=== PATIENT | male | born 1955 | race African-American/Black ===

== ENCOUNTER 2018-08-30 14:14 | Emergency (ER) | payer MEDICARE ==
[~2018-08-30] VITALS: Ht 188 cm; Wt 152.0 kg
[2018-08-30 14:37] LABS: BASO # 0.1 x10^3/uL (0.0-0.2); BASO % 2 % (0-3); EOS # 0.1 x10^3/uL (0.0-0.7); EOS % 3 % (0-3); LYMPH # 0.6 x10^3/uL (1.0-4.8); LYMPH % 13 % (24-48); MEAN CORPUSCULAR HEMOGLOBIN 29 pg (25-35); MEAN CORPUSCULAR HGB CONC 32 g/dL (31-37); MEAN CORPUSCULAR VOLUME 88 fL (79-100); MONO # 0.4 x10^3/uL (0.0-1.1); MONO % 9 % (0-9); NEUT # 3.5 x10^3uL (1.8-7.7); NEUT % 73 % (31-73); PLATELET COUNT 154 x10^3/uL (140-400); RED BLOOD COUNT 3.85 x10^6/uL (4.30-5.70); RED CELL DISTRIBUTION WIDTH 16.5 % (11.5-14.5); WHITE BLOOD COUNT 4.8 x10^3/uL (4.0-11.0)
--- NOTE | 2018-08-30 14:40 | PHYS DOC ---
Adult General Chief Complaint Chief Complaint: MECHANICAL FALL HPI HPI 62-year-old male presents via EMS after fall. Patient states that he was walking and slipped on the ice. The last thing he remembers to waking up on the ground. When he woke up, there were people standing over him try and help him get up. The patient is unsure which direction he fell, but he knows he was unconscious. At this time his only complaint is some right shoulder pain. He denies headache or neck pain. Due to loss of consciousness he is in a cervical collar by EMS. Patient states he was feeling well prior to this episode. He has kidney failure and is on dialysis. He has a Tuesday. His last dialysis was yesterday and he states that it went "fine". Review of Systems Review of Systems Constitutional: Denies fever or chills [] Eyes: Denies change in visual acuity, redness, or eye pain [] HENT: Denies nasal congestion or sore throat [] Respiratory: Denies cough or shortness of breath [] Cardiovascular: No additional information not addressed in HPI [] GI: Denies abdominal pain, nausea, vomiting, bloody stools or diarrhea [] : Denies dysuria or hematuria [] Musculoskeletal: right shoulder pain [] Integument: Denies rash or skin lesions [] Neurologic: Denies headache, focal weakness or sensory changes. +LOC [] Endocrine: Denies polyuria or polydipsia [] All other systems were reviewed and found to be within normal limits, except as documented in this note. Allergies Allergies Allergies Coded Allergies Type Severity Reaction Last Updated Verified Iodinated Contrast- Oral and IV Dye Allergy Intermediate 08/30/18 Yes metformin Allergy Intermediate 08/30/18 Yes sulfamethoxazole Allergy Intermediate 08/30/18 Yes trimethoprim Allergy Intermediate 08/30/18 Yes Physical Exam Physical Exam Constitutional: Well developed, well nourished, no acute distress, non-toxic appearance. [] HENT: Normocephalic, atraumatic, bilateral external ears normal, oropharynx moist, no oral exudates, nose normal. [] Eyes: PERRLA, EOMI, conjunctiva normal, no discharge. [] Neck: In a cervical collar, no cervical bony tenderness.[] Cardiovascular:Heart rate regular rhythm, no murmur [] Lungs & Thorax: Bilateral breath sounds clear to auscultation [] Abdomen: Bowel sounds normal, soft, no tenderness, no masses, no pulsatile masses. [] Skin: Warm, dry, no erythema, no rash. [] Back: No tenderness, no CVA tenderness. [] Extremities: Right shoulder tender to palpation, no obvious deformity, no ecchymosis.[] Neurologic: Alert and oriented X 3, normal motor function, normal sensory function, no focal deficits noted. [] Psychologic: Affect normal, judgement normal, mood normal. [] EKG EKG Sinus rhythm, rate 78, normal axis, no ST elevations or depressions.[] Radiology/Procedures Radiology/Procedures [] Impressions: PQRS Compliance Statement: One or more of the following individualized dose reduction techniques were utilized for this examination: 1. Automated exposure control 2. Adjustment of the mA and/or kV according to patient size 3. Use of iterative reconstruction technique CT HEAD AND CERVICAL SPINE WITHOUT CONTRAST History: FALL TODAY, LOC Comparison: None. Procedure: Axial images are obtained of the head from the skull base through the vertex without IV contrast. Noncontrast helical CT of the cervical spine was performed. Axial, sagittal, and coronal reconstructions were obtained. Findings: There is acute subdural along the mid and posterior falx. Maximum diameter is 3 mm. Tiny foci of subarachnoid hemorrhage may be present along the falx, images 27 and 24. Magna cisterna magna. 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 The ventricles and sulci are prominent, consistent with age-related cerebral atrophy. There is mild periventricular white matter hypoattenuation. This is a nonspecific finding but is commonly due to chronic small vessel ischemic disease in a patient of this age. No mass-effect, midline shift, or obvious acute infarction is identified. Basilar cisterns are patent. Bone windows demonstrate no significant calvarial abnormality. The visualized paranasal sinuses are clear. Mastoid air cells are well aerated. There is no evidence of acute fracture or acute malalignment of the cervical spine. No perched or jumped facets. Straightening of normal cervical lordosis may be positional or due to muscle spasm. There is disc space narrowing and endplate spurring most advanced at C4/C5, C5/C6, and C6/C7. The craniovertebral junction is normal. Visualized soft tissues of the neck demonstrate no significant abnormalities. There is a nutrient channel of the left first rib, coronal image 74. Given the history, a first rib fracture is unlikely. The visualized lung apices are clear. IMPRESSION: 1. Small acute subdural hematoma along the upper falx. 2. Old right cerebellar infarct. 3. No acute fracture of the cervical spine. Findings discussed with BEBE CARSON at 08/30/2018 3:19 PM. FOR INTERNAL CODING PURPOSES Critical result: RESULT CODE: (C) Electronically signed by: Mario Trujillo MD (08/30/2018 3:20 PM) [id number] AP chest, 08/30/2018: HISTORY: Fall, loss of consciousness There has been a previous median sternotomy. The heart size appears to be within normal limits for the AP technique. No pulmonary infiltrate is seen. There is no evidence of pleural fluid or pneumothorax. IMPRESSION: No acute cardiopulmonary abnormality is detected. Electronically signed by: Basil Duenas MD (08/30/2018 3:08 PM) [facility] DICTATED AND SIGNED BY: BASIL DUENAS MD DATE: 08/30/18 1507 CC: BEBE CARSON DO; PCP,NO Course & Med Decision Making Course & Med Decision Making Pertinent Labs and Imaging studies reviewed. (See chart for details) The patient has a small subdural hematoma and a possible small subarachnoid hemorrhage. The patient has no neuro deficits. His only complaint is shoulder pain. His chest x-ray is unremarkable. His shoulder x-ray is negative for fracture. I have informed the patient that he will need to be admitted. He is in agreement. I discussed the case with neuro surgery Dr. An and he has requested the patient be transferred to [facility] and placed in the ICU. I discussed the case with the hospitalist, Dr. Schwab and he has accepted the patient for transfer and admission. Greater than 35 minutes of critical care time was spent on this patient exclusive of other billable procedures. [] Dragon Disclaimer Dragon Disclaimer This electronic medical record was generated, in whole or in part, using a voice recognition dictation system. BEBE CARSON DO Aug 30, 2018 14:40
[2018-08-30 15:11] LABS: ALBUMIN 3.7 g/dL (3.4-5.0); CALCIUM 8.2 mg/dL (8.5-10.1); CREATININE 10.9 mg/dL (0.7-1.3); GFR 5.8; TOTAL BILIRUBIN 0.3 mg/dL (0.2-1.0); TOTAL PROTEIN 7.3 g/dL (6.4-8.2)
--- NOTE | 2018-08-30 15:12 | RAD ---
AP chest, 08/30/2018: HISTORY: Fall, loss of consciousness There has been a previous median sternotomy. The heart size appears to be within normal limits for the AP technique. No pulmonary infiltrate is seen. There is no evidence of pleural fluid or pneumothorax. IMPRESSION: No acute cardiopulmonary abnormality is detected. Electronically signed by: Basil Duenas MD (08/30/2018 3:08 PM) [facility]
--- NOTE | 2018-08-30 15:24 | RAD ---
PQRS Compliance Statement: One or more of the following individualized dose reduction techniques were utilized for this examination: 1. Automated exposure control 2. Adjustment of the mA and/or kV according to patient size 3. Use of iterative reconstruction technique CT HEAD AND CERVICAL SPINE WITHOUT CONTRAST History: FALL TODAY, LOC Comparison: None. Procedure: Axial images are obtained of the head from the skull base through the vertex without IV contrast. Noncontrast helical CT of the cervical spine was performed. Axial, sagittal, and coronal reconstructions were obtained. Findings: There is acute subdural along the mid and posterior falx. Maximum diameter is 3 mm. Tiny foci of subarachnoid hemorrhage may be present along the falx, images 27 and 24. Magna cisterna magna. 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 The ventricles and sulci are prominent, consistent with age-related cerebral atrophy. There is mild periventricular white matter hypoattenuation. This is a nonspecific finding but is commonly due to chronic small vessel ischemic disease in a patient of this age. No mass-effect, midline shift, or obvious acute infarction is identified. Basilar cisterns are patent. Bone windows demonstrate no significant calvarial abnormality. The visualized paranasal sinuses are clear. Mastoid air cells are well aerated. There is no evidence of acute fracture or acute malalignment of the cervical spine. No perched or jumped facets. Straightening of normal cervical lordosis may be positional or due to muscle spasm. There is disc space narrowing and endplate spurring most advanced at C4/C5, C5/C6, and C6/C7. The craniovertebral junction is normal. Visualized soft tissues of the neck demonstrate no significant abnormalities. There is a nutrient channel of the left first rib, coronal image 74. Given the history, a first rib fracture is unlikely. The visualized lung apices are clear. IMPRESSION: 1. Small acute subdural hematoma along the upper falx. 2. Old right cerebellar infarct. 3. No acute fracture of the cervical spine. Findings discussed with BEBE CARSON at 08/30/2018 3:19 PM. FOR INTERNAL CODING PURPOSES Critical result: RESULT CODE: (C) Electronically signed by: Mario Trujillo MD (08/30/2018 3:20 PM) [id number]
[2018-08-30] MEDS ORDERED: ONDANSETRON PF 4 MG/2 ML VIAL. IV ONE (15:30)
[2018-08-30] MEDS ORDERED: MORPHINE SULFATE 2 MG/ML DISP.SYRIN. IV ONE (15:30)
[2018-08-30 15:38] VITALS: BP 141/84
[2018-08-30] MEDS ORDERED: ACETAMINOPHEN 325 MG TABLET PO ONE (15:45)
--- NOTE | 2018-08-30 16:37 | RAD ---
EXAM: Right shoulder, 3 views. HISTORY: Pain. Fall. COMPARISON: None. FINDINGS: 3 views of the right shoulder obtained. There is no acute fracture, dislocation or subluxation. 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 IMPRESSION: No acute osseous finding. Electronically signed by: Chitra Patel MD (08/30/2018 4:33 PM) [id number]
--- NOTE | 2018-08-30 18:12 | EKG ---
[address] [id number] Test Date: 2018-08-30 Test Time: 14:30:37 Pat Name: OPAL SOMMER Department: Room: Gender: M Reservation Agent: : [id number] Requested By: BEBE CARSON Order Number: [id number] Reading MD: Jerrod Roque MD Measurements Intervals Benjamin Rate: 78 P: 0 GA: 162 QRS: 7 QRSD: 114 T: 19 QT: 438 QTc: 503 Interpretive Statements SINUS RHYTHM CONSIDER INFERIOR/ANTERIOR INJURY Electronically Signed On 09-04-2018 8:19:54 [employer] by Jerrod Roque MD
== END 2018-08-30 20:22 | disposition short-term general hospital (02) ==
LOC: ER 14:14
DX: S06.5X9A Traumatic subdural hemorrhage with loss of consciousness of unspecified duration, initial encounter (principal); M25.511 Pain in right shoulder; Z91.041 Radiographic dye allergy status; Z88.2 Allergy status to sulfonamides; Z88.1 Allergy status to other antibiotic agents; Z88.8 Allergy status to other drugs, medicaments and biological substances; W00.0XXA Fall on same level due to ice and snow, initial encounter; Y93.01 Activity, walking, marching and hiking; Y92.89 Other specified places as the place of occurrence of the external cause; Y99.8 Other external cause status
CPT/HCPCS: 36415; 70450; 71045; 72125; 73030; 80053; 84484; 85025; 93005; 99281; 99285